=== PATIENT | male | born 1970 | race Caucasian/White ===

== ENCOUNTER → 2016-07-15 | Outpatient (CLI) | payer BC, OTHER ==
[~2016-07-15] MED LIST: ALPR-411 PO; BND25 PO; EPP3/2 IM; EPP3/2 INJ; FESO4TAB PO; NYST1POW7 TOP; PANT1TAB48 PO; PENT100C6 PO; RANI300T2 PO; SIMV40TA4 PO; TADA10TA PO; TOLT2TAB9 PO
== END | disposition home or self-care (01) ==
LOC: C.LABBFT 09:44
PROVIDERS: ATTEND Internal Medicine
DX: J02.9 Acute pharyngitis, unspecified (principal)

== ENCOUNTER → 2016-09-26 | Outpatient (CLI) | payer BC ==
[~2016-09-26] MED LIST changes: -BND25 PO; +DIPH25CA5 PO
[2016-09-26 12:16] LABS: BASO % 1.1 %; BASO ABS # 0.05 K/uL (0-0.2); COMPLETE YES; EOS % 4.7 %; HEMATOCRIT 47.2 % (42-52); IG% 0.2 %; LYMPH % 27.2 %; LYMPH ABS # 1.26 K/uL (1.2-3.4); MEAN CELL VOLUME 85.5 fL (80-100); MEAN CORPUSCULAR HEMOGLOBIN 26.3 pg (25-34); MEAN CORPUSCULAR HGB CONC 30.7 g/dl (32-36); MEAN PLATELET VOLUME 10.1 fL (7.4-10.4); MONO % 9.3 %; NEUT % 57.5 %; PLATELET COUNT 294 K/uL (130-400); RED BLOOD COUNT 5.52 M/uL (4.7-6.1); WHITE BLOOD COUNT 4.64 K/uL (4.8-10.8)
[2016-09-26 12:33] LABS: ALT/SGPT 34 U/L (12-78); BLOOD UREA NITROGEN 15 mg/dl (7-18); BUN/CREATININE RATIO 18.3 (10-20); CARBON DIOXIDE 28 mmol/L (21-32); CHLORIDE 105 mmol/L (98-107); CHOLESTEROL 213 mg/dl (0-200); CREATININE 0.84 mg/dl (0.60-1.40); GLUCOSE 89 mg/dl (70-99); SODIUM 140 mmol/L (136-145); TRIGLYCERIDES 101 mg/dl (0-150); VERY LOW DENSITY LIPOPROT CALC 20 mg/dl
[2016-09-26 12:34] LABS: CALCIUM 9.7 mg/dl (8.5-10.1)
[2016-09-26 12:43] LABS: ALB/GLOB RATIO 1.4 (0.9-2); ALKALINE PHOSPHATASE 79 U/L (45-117); AST/SGOT 14 U/L (15-37); HDL CHOLESTEROL 43 mg/dl; LDL CHOLESTEROL CALCULATED 150 mg/dl
[2016-09-26 12:45] LABS: ESTIMATED AVERAGE GLUCOSE 111 mg/dl; HA1C FLAG Normal (Normal)
== END | disposition home or self-care (01) ==
LOC: C.LABBFT 07:31
PROVIDERS: ATTEND Physician Assistant Medical
DX: E78.00 Pure hypercholesterolemia, unspecified (principal); E07.9 Disorder of thyroid, unspecified; R73.09 Other abnormal glucose